=== PATIENT | female | born 1990 | race Caucasian/White ===

== ENCOUNTER 2017-03-24 23:09 | Inpatient (IN) ==
[~2017-03-24 23:09] MED LIST: Famotidine 20 MG/2 ML VIAL IVP PRN; Metoclopramide 10 MG/2 ML VIAL IVP ONE; Naloxone 0.4 MG/ML INJ IVP PRN; Ringers Solution, Lactated 1,000 ML ONE
[2017-03-24] MEDS ORDERED: Ringers Solution, Lactated 1,000 ML IVC SCH (23:15)
--- NOTE | 2017-03-24 23:20 | Anesthesia Evaluation PreOp ---
Date of Encounter: 03/24/17 Time of Encounter: 23:18 - Past History Planned Operation: csection Cardiac History: Other (states leaky valve, but denies physical symptoms) Pulmonary History: Former smoker (quit during ), Asthma FLIGHT LINE MECHANIC History: Denies Any Significant HX Other Medical History: Other (heartburn during ) Anesthesia History: No Prior Anesthetic Complications, Past Anesthesia (ovarian cyst, csection) : Yes (39 weeks, ) Alcohol Use: none Drug use: none Medications and Allergies Ferrous Sulfate [Iron] 325 mg PO DAILY 03/24/17 [History] Allergies No Known Allergies Allergy (Verified 09/10/16 09:23) - Meds/Allergy Pre-op Review Medications Reviewed: Yes Allergies Reviewed: Yes Beta Blockers on Current Med List: No Anesthesia Exam O2 Sat Height 1.78 m Weight 84 kg Vital Signs Temp Pulse Resp BP 98.1 F 84 16 133/63 03/24/17 23:03 03/24/17 23:03 03/24/17 23:03 03/24/17 23:03 Height: 70 Weight: 84 NPO (# of Hours): 6 hours - HEENT Pupil (Motor): Pupils equal Mallampati: II Teeth: Normal Oral Opening: Greater than 3 - FLIGHT LINE MECHANIC LOC: Oriented FLIGHT LINE MECHANIC Motor: Normal RUE, Normal LUE, Normal RLE, Normal LLE, Normal Face [employer]IGHT LINE MECHANIC Sensory: Normal: RUE, LUE, RLE, LLE, Face - Cardiac Rhythm: Regular Murmur: None JVD: No Carotid Bruit: No - Pulmonary Breath Sounds: bilateral Clear Respiratory Effort: Symmetrical Anesthesia Assess/Plan ASA Score: 2 Modified Letha Scale for Level of Consciousness: Cooperative, oriented, and tranquil Anesthetic Plan: Regional Monitoring Plan: Standard Monitors Recovery Plan: PACU
[2017-03-24] MEDS ORDERED: cefOXitin 2,000 MG in D5% in Water (Mini-Bag+) 100 ML IVPB ONE (23:21)
[2017-03-24] MEDS ORDERED: MetroNIDAZOLE 500 MG/100 ML 500 MG/100 ML BAG IVPB ONE (23:21)
[2017-03-24 23:22] LABS: Basophils % 0.2 %; Eosinophils # 0.1 K/mcL (0.0-0.6); Eosinophils % 0.6 %; Hematocrit 32.1 % (35.3-44.9); Hemoglobin 10.4 g/dL (11.5-15.4); Immature Granulocytes % 0.5 % (0-4); Lymphocytes # 1.5 K/mcL (0.6-4.6); Lymphocytes % 17.6 %; Mean Corpuscular HGB Conc 32.4 g/dL (31.6-35.5); Mean Corpuscular Hemoglobin 28.5 pg (28.0-33.3); Mean Corpuscular Volume 87.9 fL (83.0-100.0); Mean Platelet Volume 10.5 fL (9.4-12.4); Monocytes # 0.8 K/mcL (0.0-1.3); Monocytes % 8.9 %; Neutrophils # 6.3 K/mcL (1.6-8.9); Platelet Count 154 K/mcL (140-400); Red Blood Count 3.65 M/mcL (3.82-4.97); Red Cell Distribution Width 16.9 % (11.5-14.5); Segmented Neutrophils % 72.2 %
--- NOTE | 2017-03-24 23:26 | OB/GYN History & Physical ---
Date of Encounter: 03/24/17 Time of Encounter: 23:22 Assessment and Plan (1) 39 weeks gestation of Current visit: Yes Status: Acute care with Dr. Barr (2) Previous section Current visit: Yes Status: Acute Scheduled for repeat on 03/25. Informed consent obtained due to spontaneous rupture of membranes in active labor status with history of 2 previous sections. Informed consent obtained. Anesthesia and OR team ready (3) Spontaneous rupture of membranes Current visit: Yes Status: Acute Plan for urgent repeat section. Informed consent obtained. Antibiotics for prophylaxis ordered (4) Active labor Current visit: Yes Status: Acute Kervin every 3 minutes. Cervix has changed she is now dilated and effaced. Plan for urgent section History of Present Illness Chief complaint: In labor, need HPI: Ms. Chavis is a 26 year old female at 39 weeks who is scheduled for a repeat in the morning who presents with contractions and spontaneous rupture of membranes at 1930 this evening. She reports the fluid is clear. She denies any vaginal bleeding during or prior to this time. She reports an active fetus. She has received care with Dr. Barr but has recently missed several appointments. Blood type is A+, rubella immune and GBS is negative. Past Med Surg Social Fam HX - Past Medical History Medical history: asthma, GERD Psychiatric history: anxiety - Past Surgical History Surgical History: , other (The patient was taken to the operating room and given general anesthesia adequate for abdominal and pelvic surgery. She was prepped and draped in the usual sterile fashion in yellow fin stirrups after being examined under anesthesia. The timeout was completed. A speculum was placed in the vaginal vault and the cervix was grasped with a single-tooth tenaculum. A Sheldon cannula then was inserted through the cervical os for uterine manipulation. Gloves were changed. The subumbilical incision site was elevated with Allis clamps, injected with half percent Marcaine and a vertical less than 1 cm incision was made with a scalpel. A 5 mm bladeless trocar was inserted with direct visualization into the abdominal cavity. Abdomen was insufflated with CO2. Pelvis was identified and visually inspected. Upper abdomen was visually inspected. A left lateral trocar site was transilluminated , injected with 0.5% Marcaine and an incision was made. A 5 mm bladeless trocar was inserted with direct visualization into the pelvic cavity. A blunt probe was then used for manipulation of the uterus tubes and ovaries. The anterior posterior cul-de-sacs were inspected. The left and right gutters were inspected. The upper abdomen was inspected. Photos were taken. Please see findings for complete and detailed description. The instruments were removed. The left lateral trocar was removed and observed to be hemostatic. The laparoscope was removed and the abdomen was deflated. This umbilical trocar was removed. The incisions were closed with Dermabond and Steri-Strips. Estimated blood loss 5 mL's. Complications none. Patient was given a B&O suppository, extubated and taken to recovery room in stable condition.) - Social History Smoking Status: Former smoker Smokeless Tobacco Status: No Alcohol use: none Drug use: none - Family History Mother Living Status: Still Living Hx Family Cardiac Disorders: Yes Obstetrical History - Pregnancies : 3 Term: 2 Livin Medications and Allergies Ferrous Sulfate [Iron] 325 mg PO DAILY 03/24/17 [History] Allergies IVP DYE Allergy (Uncoded 03/24/17 23:19) Rash Review of System OB All systems PM: reviewed and no additional remarkable complaints except as stated - Constitutional Constitutional ROS IM: weight gain - Gastrointestinal Gastrointestinal: cramping - Genitourinary Genitourinary: vaginal discharge Exam - Vital Signs Vital signs: Initial Vital Signs Temp Pulse Resp BP 98.1 F 84 16 133/63 03/24/17 23:03 03/24/17 23:03 03/24/17 23:03 03/24/17 23:03 - Constitutional Constitutional: well developed, well nourished, no acute distress, average body habitus - HEENT HEENT: Normocephaly, Mucus Membranes Moist - Neck Neck exam: normal inspection, supple - Lungs Respiratory exam: CTAB - Cardiovascular Cardiovascular exam: RRR - Breasts Breast: bilateral: normal - Abdomen Abdomen: Present: bowel sounds normal, gravid, non tender - Extremities Extremities exam: normal inspection, warm Deep Tendon Reflex Grade: 2+ Normal - Vulva Vulva: bilateral: normal - Vagina Vagina: Absent: normal moisture (Grossly ruptured, nitrazine positive) - Cervix Dilation: 3 Effacement: 80 Station: -2 - Anus/Rectum Anus/Rectum: Present: normal perianal skin Results All other labs normal. - VTE Documentation of Mechanical Device: Intermittent pneumatic compression device
[2017-03-24] MEDS ORDERED: *HR* Morphine Sulfate/PF 5 MG/10 ML AMPUL ONE (23:30)
[2017-03-24] MEDS ORDERED: *HR* FentaNYL (PF) 100 MCG/2 ML VIAL ONE (23:30)
[2017-03-24] MEDS ORDERED: *HR* Phenylephrine 10 MG/ML VIAL ONE (23:32)
[2017-03-24] MEDS ORDERED: *HR* Oxytocin 10 UNIT/ML VIAL IM ONE (23:32)
[2017-03-25] MEDS ORDERED: Ringers Solution, Lactated 1,000 ML ONE ×2 (00:01→00:58)
[2017-03-25] MEDS ORDERED: *HR* Promethazine 25 MG/ML VIAL IVP PRN (00:27)
[2017-03-25] MEDS ORDERED: Ondansetron 4 MG/2 ML VIAL IVP ONE (00:27)
[2017-03-25] MEDS ORDERED: *HR* HYDROmorphone (PF) 1 MG/ML SYRINGE IVP PRN (00:27)
[2017-03-25] MEDS ORDERED: Ondansetron 4 MG/2 ML VIAL ONE (00:44)
[2017-03-25] MEDS ORDERED: *HR* Oxytocin 10 UNIT/ML VIAL IM ONE (00:58)
--- NOTE | 2017-03-25 01:16 | OB/GYN Procedure Note ---
Section - Date of procedure: 03/25/17 Preop diagnosis: desires repeat , other (In labor with ruptured membranes) Post-op diagnosis: same ( macrosomia) Procedure: section, repeat low transverse Surgeon: Dari Davis Estimated blood loss (cc): 500 Anesthesiologist: Corey Mondragon Apartment Rental Agent: Ryland Hernandez Anesthesia Type: Spinal section complications: none Disposition: L&D Recovery Room Specimens: Placenta, Cord segment, Cord blood - (s) Infant A Infant Delivery Date: 03/25/17 Infant Delivery Time: 00:18 Presentation: vertex Position: LOT Route of delivery: other Gender: Male Viability: Viable Pounds: 10 Ounces: 1 at 1 minute: 8 at 5 minutes: 9 Shoulder Dystocia: not encountered Specimens collected: cord blood Placenta: complete extraction Cord: 3 umbilical vessels - Narrative Narrative: The patient was taken to the operating room and given spinal anesthesia adequate for abdominal and pelvic surgery. She was prepped and draped in the usual sterile fashion. Timeout was completed. A Pfannenstiel skin incision was made through the previous scar. The subcutaneous tissue was sharply dissected down to the fascia. The fascia was incised in the midline and extended bilaterally with Santiago scissors.. 2 straight Cherise clamps were placed on the inferior fascial edge and the fascia was bluntly and sharply dissected away from the rectus muscles. This was repeated superiorly. The rectus muscles were bluntly bissected. Peritoneum was sharply entered and then extended superiorly and inferiorly confirming there were no anterior adhesions. Bladder blade was placed to protect the bladder. Vesicouterine peritoneum was thickly adherent anterior to the uterine wall and was carefully dissected away, incised and reflected inferiorly and the bladder blade was replaced to protect the bladder. A low transverse incision was then made through the lower uterine segment down to the amnion. This was bluntly extended bilaterally.. The amnion was bluntly entered. Clear fluid was seen. This was followed by the vertex delivery of a viable and vigorous male weighing 10 # 1 oz with Apgars of 8 at 1 minute and 9 at 5 minutes. was placed on the maternal abdomen. The cord was clamped and cut after a delay. was handed to the nursery care team. Cord blood was obtained. The placenta was extracted intact. The uterine cavity was digitally palpated and wiped clean with a moist lap sponge. There were no placental remnants identified. Clamps were placed on the uterine angles and the uterine incision was closed using 0 Vicryl suture in a running, locking fashion. A second imbricating layer completed the uterine closure with 0 Vicryl suture. The uterus was then examined and noted to be hemostatic. The pelvis was then irrigated with a copious amount of sterile water. And again good hemostasis was identified. Tubes and ovaries were inspected and noted to be grossly normal. The peritoneal edges and rectus muscles were then examined and hemostasis achieved. The fascia was then closed using 0 PDS loop in a running nonlocking fashion. Subcutaneous tissue was irrigated with sterile water, good hemostasis was achieved. The skin was then closed using a 4-0 Monocryl in a running subcuticular fashion. The incision was then reinforced with benzoin and Steri- Strips. Good hemostasis was noted. Estimated blood loss was 500cc. The Olson was noted to be draining clear yellow urine at the end of the procedure. All sponge and instrument counts are correct at the end of the procedure. The patient was taken to the recovery room in stable condition.
[2017-03-25] MEDS ORDERED: Oxytocin 20 units/ LR 1000 mL 20 UNIT/1,000 ML BAG IVC ONE (01:35)
[2017-03-25] MEDS ORDERED: Oxytocin 20 units/ LR 1000 mL 20 UNIT/1,000 ML BAG IVC SCH (03:15)
[2017-03-25] MEDS ORDERED: Metoclopramide 10 MG/2 ML VIAL IVP PRN (03:15)
[2017-03-25] MEDS ORDERED: Sennosides 8.6 MG TABLET PO PRN (03:15)
[2017-03-25] MEDS ORDERED: Ondansetron 4 MG/2 ML VIAL IVP PRN (03:15)
[2017-03-25] MEDS ORDERED: Simethicone 80 MG TAB.CHEW PO PRN (03:15)
[2017-03-25] MEDS: *HR* OxyCODONE/APAP 5/325 TABLET PO PRN ×4 (04:08→22:27)
[2017-03-25 05:50] LABS: Basophils % 0.2 %; Eosinophils % 0.3 %; Hematocrit 29.9 % (35.3-44.9); Hemoglobin 9.6 g/dL (11.5-15.4); Immature Granulocytes % 0.4 % (0-4); Lymphocytes # 1.2 K/mcL (0.6-4.6); Lymphocytes % 11.9 %; Mean Corpuscular HGB Conc 32.1 g/dL (31.6-35.5); Mean Corpuscular Hemoglobin 28.2 pg (28.0-33.3); Mean Corpuscular Volume 87.7 fL (83.0-100.0); Mean Platelet Volume 10.2 fL (9.4-12.4); Monocytes # 0.7 K/mcL (0.0-1.3); Monocytes % 7.2 %; Neutrophils # 8.1 K/mcL (1.6-8.9); Platelet Count 115 K/mcL (140-400); Red Blood Count 3.41 M/mcL (3.82-4.97); Red Cell Distribution Width 16.8 % (11.5-14.5)
[2017-03-25] MEDS ORDERED: *HR* Nalbuphine 20 MG/ML AMPUL IVP ONE ×2 (06:52→13:28)
[2017-03-25] MEDS: Prenatal Vit/FA 1 EACH TABLET PO SCH (08:08)
--- NOTE | 2017-03-25 17:14 | Anesthesia Evaluation Post Op ---
Date of Encounter: 03/25/17 Time of Encounter: 17:13 - Vital Signs Vital Signs: Vital Signs/O2 Sat, Most Current Temp Pulse Resp BP Pulse Ox 98.4 F 82 16 102/51 97 03/25/17 12:15 03/25/17 12:15 03/25/17 15:30 03/25/17 12:15 03/25/17 12:15 - Lungs Lungs: Clear Ascult./Percussion - Airway Airway: Non-obstructed - Cardiovascular Regular Rate - Mental Status Mental Status: Alert & Oriented, Answers Appropriately - Pain Pain Scale: 0 Pain Scale used: Numeric (1 - 10) - Nausea Vomiting Nausea Vomiting: Not Present - Hydration Hydration: Tolerates oral liquids, Olson catheter Notes: pt w/ c/o itching that responds to doses of 2.5mg nalbuphine IVP 03/25/17 17:14 - Discharge PostOp Status: Discharge Patient to home
[2017-03-25] MEDS: Ibuprofen 600 MG TABLET PO SCH (19:55)
[2017-03-26] MEDS: *HR* OxyCODONE/APAP 5/325 TABLET PO PRN ×2 (02:47→06:45)
[2017-03-26] MEDS: Prenatal Vit/FA 1 EACH TABLET PO SCH (08:13)
[2017-03-26] MEDS: Ibuprofen 600 MG TABLET PO SCH (08:14)
--- NOTE | 2017-03-26 08:29 | Discharge Summary ---
Date of Encounter: 03/26/17 Time of Encounter: 08:27 - Discharge Diagnosis (1) delivery delivered Priority: Primary Status: Acute Comments: Pt meeting all post-op milestones. She is ambulating, voiding, passing flatus, and tolerating regular diet. Pain well controlled. Pt requesting discharge home later today if possible. (2) Mother currently breast-feeding Priority: Secondary Status: Acute Comments: Pt currently breast and bottle feeding. She reports low supply with other two children. (3) anemia Priority: Secondary Status: Acute Comments: Home on iron. - Discharge Medications Prescriptions: OxyCODONE/APAP 5/325 [Percocet 5/325 MG] 1 each PO Q4HR PRN #30 tab PRN Reason: Moderate pain 4-6 Ibuprofen [Motrin] 600 mg PO Q6HR #60 tab Docusate [Colace] 100 mg PO BID #60 Ferrous Sulfate [Iron] 325 mg PO DAILY #30 Home Medications: Docusate [Colace] 100 mg PO BID #60 03/26/17 [Rx] Ferrous Sulfate [Iron] 325 mg PO DAILY #30 03/26/17 [Rx] Ibuprofen [Motrin] 600 mg PO Q6HR #60 tab 03/26/17 [Rx] OxyCODONE/APAP 5/325 [Percocet 5/325 MG] 1 each PO Q4HR PRN #30 tab 03/26/17 [Rx ] Vit/FA 1 each PO DAILY tab 03/26/17 [Rx] Simethicone [Gas-X] 80 mg PO TID PRN 03/26/17 [Rx] Allergies/Adverse Reactions: Allergies IVP DYE Allergy (Uncoded 03/24/17 23:19) Rash Data Procedures and tests throughout hospitalization: Laboratory Tests 03/24/17 03/25/17 23:15 05:30 WBC 8.7 10.1 RBC 3.65 L 3.41 L Hgb 10.4 L 9.6 L Hct 32.1 L 29.9 L MCV 87.9 87.7 MCH 28.5 28.2 MCHC 32.4 32.1 RDW 16.9 H 16.8 H Plt Count 154 115 L MPV 10.5 10.2 Immature Gran % 0.5 0.4 Seg Neutrophils % 72.2 80.0 Lymphocytes % 17.6 11.9 Monocytes % 8.9 7.2 Eosinophils % 0.6 0.3 Basophils % 0.2 0.2 Neutrophils # 6.3 8.1 Lymphocytes # 1.5 1.2 Monocytes # 0.8 0.7 Eosinophils # 0.1 0.0 Basophils # 0.0 0.0 Date of admission: 03/24/17 23:09 Primary care physician: Deborah Bobby Discharging clinician: Sierra Small Anticipated date of discharge: 03/26/17 - Patient Status Disposition: Home, Self-Care Condition: Good Functional capacity at discharge: independent ambulation Overall status at discharge: patient is progressing back to baseline - Discharge Instructions Follow Up With: Deborah Bobby [Primary Care Provider] - Zaid Barr MD [Partnered Physician] - Additional Instructions: Instructed to F/U with student liaison officer([facility]) in 1-2days. - Diet and Activity Activity: increase activity as tolerated Diet: regular diet Hospital Course Reason for admission: active labor Delivery: section Episiotomy: none Laceration: none Other procedures: none complications: none Discharge diagnosis: IUP at term delivered [place] baby: male Hospital course: - Date of procedure: 03/25/17 Preop diagnosis: desires repeat , other (In labor with ruptured membranes) Post-op diagnosis: same ( macrosomia) Procedure: section, repeat low transverse Surgeon: Dari Davis Estimated blood loss (cc): 500 Anesthesiologist: Corey Mondragon Shelf Filler: Ryland Hernandez Anesthesia Type: Spinal section complications: none Disposition: L&D Recovery Room Specimens: Placenta, Cord segment, Cord blood - (s) A Delivery Date: 03/25/17 Infant Delivery Time: 00:18 Presentation: vertex Position: LOT Route of delivery: other Gender: Male Viability: Viable Pounds: 10 Ounces: 1 at 1 minute: 8 at 5 minutes: 9 Shoulder Dystocia: not encountered Specimens collected: cord blood Placenta: complete extraction Cord: 3 umbilical vessels Time Attestation: Total time spent providing and/or coordinating discharge services: Time Spent: Less than 30 minutes - VTE Documentation of Mechanical Device: Intermittent pneumatic compression device Exam - Constitutional Vitals: Temp Pulse Resp BP Pulse Ox 98.1 F 79 16 102/61 96 03/25/17 20:05 03/25/17 20:05 03/25/17 20:10 03/25/17 20:05 03/25/17 20:05 General appearance IM: A&O X 3 - Respiratory Respiratory exam: Present: CTAB - Cardiovascular Cardiovascular exam IM: Present: RRR, +S1, +S2 - GI/Abdominal GI/Abdominal exam IM: soft, no peritoneal signs Incision: dry (Dressing removed at this time. Steri strips in place. No s/sx infection.), intact - Rectal Rectal exam: deferred - Uterine Tone: Firm Uterus Position: 2 Fingers Below Umbilicus - Extremities Exam Extremities exam IM: Present: normal inspection - Neurological Exam Neurological exam: normal gait, oriented X3 - Psychiatric Additional comments: reports good mood
[2017-03-26 09:34] VITALS: BP 107/59
== END 2017-03-26 13:00 | disposition home or self-care (01) | DRG 540 ==
LOC: 1NENULAB → 1NENUOBS 03-25 04:36
PROVIDERS: ADMIT Obstetrics & Gynecology; ATTEND Obstetrics & Gynecology